=== PATIENT | female | born 1995 | race Hispanic/Latino ===

== ENCOUNTER 2025-07-16 14:58 | Emergency (ER) | payer SELFPAY ==
[~2025-07-16] VITALS: Ht 160 cm; Wt 86.2 kg
[2025-07-16 15:59] VITALS: PULSE 87; RESP 16; TEMP 98.4
[2025-07-16] MEDS ORDERED: AUGMENTIN 500-1 EACH PO (16:38)
[2025-07-16 17:16] LABS: LEUKOCYTE ESTERASE ,URINE SMALL (NEGATIVE); PROTEIN,URINE DIPSTICK 1+ (NEGATIVE); URINE UROBILINOGEN >=8 mg/dL (0.2 - 1)
[2025-07-16 17:19] LABS: EPITHELIAL CELLS,URINE MANY /LPF
[2025-07-16 17:20] LABS: PREGNANCY TEST, URINE NEGATIVE (NEGATIVE)
[2025-07-16 17:43] VITALS: BP 126/72; PULSE 90; RESP 6; TEMP 98.4; O2SAT 100
== END 2025-07-16 17:45 | disposition home or self-care (01) ==
LOC: ER 15:50
DX: R11.2 Nausea with vomiting, unspecified (principal); N39.0 Urinary tract infection, site not specified; R14.0 Abdominal distension (gaseous); R19.7 Diarrhea, unspecified
CPT/HCPCS: 81001; 81025; 93005; 99284